=== PATIENT | female | born 1990 | race Caucasian/White ===

== ENCOUNTER 2017-05-02 16:24 | Emergency (ER) | payer MEDICAID ==
--- NOTE | ~2017-05-02 | ER ---
PATIENT'S NAME: [facility] AGE: 26 Y [address] ROOM: [place] [address] LOCATION: [facility] ADMIT DATE: 05/02/2017 ER/Outpatient Report DISCHARGE DATE: 05/02/2017 FAMILY PHYSICIAN: Norm French MD ATTENDING PHYSICIAN: Antonio Quintanilla Time of Arrival: 1624 hours. Time of evaluation: 1626 hours. CHIEF COMPLAINT: Jaw pain. HISTORY OF PRESENT ILLNESS: The patient is a 26-year-old female who presents to the Emergency Department today with a chief complaint of jaw pain, left side, it is on her upper jaw. She reports that it has been going on for about 3 days. She does report some nausea, no vomiting. No fevers or chills. No diarrhea or constipation. She does report 10/10 sharp pain. She reports she has an appointment to see Dr. Salcedo on the . He did place her on amoxicillin today, but she has not started it yet. She has been taking Tylenol and ibuprofen without relief. PAST MEDICAL HISTORY: None. PAST SURGICAL HISTORY: Tear duct insertion. SOCIAL HISTORY: The patient denies any tobacco, alcohol, or illicit drug use. ALLERGIES: TO DEMEROL AND LATEX. MEDICATIONS: Please see list. PRIMARY CARE: [facility] dentist, [facility]. REVIEW OF SYSTEMS: All systems are reviewed by myself and are negative with the exception of those discussed in the HPI and past medical history. PHYSICAL EXAMINATION: VITAL SIGNS: Weight 91.7 kg, blood pressure 154/77, pulse 88, respiratory PATIENT'S NAME: [facility] AGE: 26 Y [address] ROOM: [place] [address] LOCATION: [facility] ADMIT DATE: 05/02/2017 ER/Outpatient Report DISCHARGE DATE: 05/02/2017 FAMILY PHYSICIAN: Norm French MD ATTENDING PHYSICIAN: Antonio Quintanilla rate 18, temperature 98.9, and oxygen saturation 95% on room air. GENERAL: The patient is a 26-year-old female who appears stated age, in mild acute distress secondary to pain. HEENT: Head: Normocephalic, atraumatic. Pupils are equal, round, and reactive to light. NECK: Supple. There is no nuchal rigidity. CARDIOVASCULAR: Regular rate and rhythm. No murmurs, rubs, or gallops. LUNGS: Clear to auscultation bilaterally. No wheezes, rales, or rhonchi. ABDOMEN: Soft, nontender, and nondistended. No rebound, rigidity, or guarding. MUSCULOSKELETAL: The patient moves all 4 extremities. SKIN: Warm and dry. No rashes or lesions noted. LABORATORY DATA AND X-RAYS: None. IMPRESSION: 1. Dental abscess, left upper. 2. Initial visit. EMERGENCY DEPARTMENT COURSE: The patient was brought back to the examination room. Seen and evaluated by myself. History and physical was performed as described above. I will place the patient on [place] and Naprosyn for pain with sedation warning. The patient is to take her amoxicillin. She has continued to make an appointment with Dr. Salcedo. I have discussed return to care instructions including worsening symptoms or any other concerns to return to the emergency department as soon as possible. The patient is agreeable without further questions at this time. DISPOSITION: The patient discharged home in good condition. DO DAMARI RODRIGUEZ/modl /[id number] d: 05/03/17 0016 t: 05/07/173, OUTPATIENT REPORT
== END 2017-05-02 17:16 | disposition disaster alternative care site (69) ==
LOC: GMED 16:24
DX: K04.7 Periapical abscess without sinus (principal); Z98.890 Other specified postprocedural states; Z91.040 Latex allergy status; Z88.5 Allergy status to narcotic agent
CPT/HCPCS: J1885